=== PATIENT | male | born 1935 | race Caucasian/White ===

== ENCOUNTER 2020-06-27 12:51 | Outpatient (CLI) | payer MEDICARE, OTHER ==
--- NOTE | 2020-06-27 14:10 | CT ---
CTA Angio Abd Pelvis W WO Con History: Abdominal aortic aneurysm Comparison: Ultrasound of May 2020 Findings: CT angiogram of the abdomen and pelvis was performed after the intravenous ministration of contrast. 3-D rendering provided. Low-grade subpleural reticulation in the lung bases. No pericardial effusion. Large infrarenal abdominal aortic aneurysm with a transverse dimension up to 6 cm with a critical mishel gth of 12 cm. Aneurysmal dilatation of the left common iliac artery up to 2.5 cm. Aneurysmal dilatation of the right common iliac artery up to 2 cm. The celiac trunk is patent. 30-40% narrowing of the proximal superior mesenteric artery for length of 2 cm. Adequate peripheral vascular flow. The left femoral artery is occluded just after the takeoff to the deep femoral artery. Renal arteries are patent. The liver, spleen, pancreas are unremarkable. Mild bilateral adrenal hyper plasia. No evidence for bowel obstruction. Extensive diverticular disease sigmoid colon without active curren t inflammation. Small volume layering calcific debris within the urinary bladder. Enlarged prostate with multiple par enchymal calcifications. Appendix is visualized and is normal. Grade 1 L3 over L4 anterolisthesis due to degenerative facet ar throsis. L4 laminectomy change. Large disc osteophyte complex at L5/S1. Impression: 1. Large infrarenal abdominal aortic aneurysm as described. No evidence for dissection. The aneurysm is 60-70% peripherally thrombosed. 2. 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 3. 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
== END 2020-06-27 12:52 | disposition home or self-care (01) ==
LOC: CT 12:51
PROVIDERS: ATTEND Thoracic Surgery (Cardiothoracic Vascular Surgery)
DX: I71.4 Abdominal aortic aneurysm, without rupture (principal); I72.3 Aneurysm of iliac artery; I70.8 Atherosclerosis of other arteries
CPT/HCPCS: 74174; 82565

== ENCOUNTER 2020-07-15 10:30 | Inpatient (IN) | payer MEDICARE, OTHER ==
[2020-07-15 14:07] LABS: Mean Corpuscular HGB CONC 33.1 g/dL (32.0-36.0); Mean Corpuscular Hemoglobin 32.5 pg (27.0-31.0); Mean Platelet Volume 7.7 fL (7.4-10.4); Platelet Count 234 thou/uL (130-400); RBC Distribution Width 12.6 % (11.5-14.5); Red Blood Cell (RBC) Count 4.94 mill/uL (4.70-6.10); White Blood Cell (WBC) Count 7.9 thou/uL (4.8-10.8)
[2020-07-16 02:23] LABS: Anion Gap 18 mmol/L (10-20); BUN (Urea Nitrogen) 20 mg/dL (8.4-25.7); Calc. Creatinine Clearance 0 mL/min (70-130); Calcium 9.3 mg/dL (7.8-10.44); Carbon Dioxide 23 mmol/L (23-31); Chloride 104 mmol/L (98-107); Estimated GFR-MDRD 78; Glucose 88 mg/dL (83-110); Potassium 5.1 mmol/L (3.5-5.1); Sodium 140 mmol/L (136-145)
[2020-07-16 15:42] LABS: SARS-CoV-2 MS2 Positive; SARS-CoV-2 N Gene Negative; SARS-CoV-2 S Gene Negative; SARS-CoV-2 by NAA Not Detected (NotDetected); SARS-CoV-2 orf1ab Negative
[2020-07-19] MEDS ORDERED: Fentanyl 100 MCG/2 ML VIAL ONE ×3 (06:35→11:24)
[2020-07-19] MEDS ORDERED: Midazolam HCl 2 mg/2 ml Vial ONE (06:35)
[2020-07-19] MEDS ORDERED: Dexmedetomidine 200 MCG/2 ML VIAL ONE (06:36)
[2020-07-19] MEDS ORDERED: Vecuronium 10 MG VIAL ONE ×2 (06:36→09:06)
[2020-07-19] MEDS ORDERED: Midazolam HCl 5 mg/5 ml Vial ONE (06:36)
[2020-07-19] MEDS ORDERED: Heparin 10,000 UNITS/1 ML VIAL 30,000 UNITS in Sodium Chloride 0.9% 1,000 ML IVPB SCH (06:45)
[2020-07-19] MEDS ORDERED: Protamine Sulfate 50 MG/5 ML VIAL ONE (06:52)
[2020-07-19] MEDS ORDERED: Heparin 5,000 UNITS/ML VIAL ONE (06:52)
[2020-07-19] MEDS ORDERED: Nitroglycerin 50 MG/250 ML BOT 250 ML ONE (08:21)
[2020-07-19] MEDS ORDERED: PHENYLEPHRINE-NS 100 MCG/ML 10 ML SYRINGE ONE (09:06)
[2020-07-19] MEDS ORDERED: Ketorolac Tromethamine 30 MG/ML VIAL ONE (09:06)
[2020-07-19] MEDS ORDERED: Dexamethasone 20 MG/5 ML VIAL ONE (09:06)
[2020-07-19] MEDS ORDERED: Lidocaine 1% PF 5 ML VIAL ONE (09:06)
[2020-07-19] MEDS ORDERED: Labetalol HCl 100 MG/20 ML VIAL ONE (09:06)
[2020-07-19] MEDS ORDERED: Ondansetron PF 4 MG/2 ML Vial ONE (09:06)
[2020-07-19] MEDS ORDERED: PROPOFOL 200 MG/20 ML VIAL ONE (09:06)
[2020-07-19] MEDS ORDERED: Glycopyrrolate 0.2 MG/ML 5 ML SYRINGE ONE (09:06)
[2020-07-19] MEDS ORDERED: Heparin 10,000 UNITS/ 10 ML VIAL ONE (09:16)
[2020-07-19] MEDS ORDERED: Fentanyl 100 MCG/2 ML VIAL SLOW IVP PRN ×2 (10:30)
[2020-07-19] MEDS ORDERED: Norepinephrine 8 MG/0.9% NS 250 ML IVPB PRN (10:30)
[2020-07-19] MEDS ORDERED: Nitroglycerin 50 MG/250 ML BOT 250 ML IVPB PRN (10:30)
[2020-07-19] MEDS ORDERED: Ondansetron PF 4 MG/2 ML Vial IVP PRN ×2 (10:30→11:27)
[2020-07-19 10:45] VITALS: BMI 22.3
[2020-07-19] MEDS ORDERED: Ondansetron HCl/PF 4 MG/2 ML Vial IVP PRN (10:50)
[2020-07-19 11:13] LABS: Platelet Count 196 thou/uL (130-400)
[2020-07-19 11:27] LABS: Anion Gap 12 mmol/L (10-20); BUN (Urea Nitrogen) 16 mg/dL (8.4-25.7); Calc. Creatinine Clearance 63 mL/min (70-130); Calcium 7.7 mg/dL (7.8-10.44); Carbon Dioxide 22 mmol/L (23-31); Chloride 110 mmol/L (98-107); Estimated GFR-MDRD 80; Glucose 164 mg/dL (83-110); Potassium 3.9 mmol/L (3.5-5.1); Sodium 140 mmol/L (136-145)
[2020-07-19] MEDS ORDERED: diphenhydrAMINE 25 MG CAP PO PRN (11:27)
[2020-07-19] MEDS ORDERED: Naloxone HCl 0.4 mg/ml Vial IV PRN (11:27)
[2020-07-19] MEDS ORDERED: Zolpidem Tartrate 5 MG TAB PO PRN (11:27)
[2020-07-19] MEDS ORDERED: Promethazine HCl 25 MG/ML VIAL IM PRN (11:27)
[2020-07-19] MEDS ORDERED: fentaNYL Citrate/PF 2,000 MCG in Sodium Chloride 0.9% 60 ML IV PRN (11:27)
[2020-07-19] MEDS ORDERED: diphenhydrAMINE 50 MG/ML VIAL IVP PRN (11:27)
[2020-07-19] MEDS ORDERED: diphenhydrAMINE 50 MG/ML VIAL IM PRN (11:27)
[2020-07-19] MEDS ORDERED: Communication Order-Pharmacy FS SCH (11:30)
--- NOTE | 2020-07-19 11:30 | OP ---
DATE OF PROCEDURE: 07/19/2020 PREOPERATIVE DIAGNOSIS: Abdominal aortic aneurysm involving iliacs. PROCEDURE PERFORMED: Aorta to right distal common iliac artery and left external iliac artery with 20 x 10 Hemashield bifurcation graft. BROACH GRINDER: Jose. ESTIMATED BLOOD LOSS: 600 transfused and auto transfused 260. DESCRIPTION OF PROCEDURE: After adequate anesthesia had been obtained, the patient was prepped and draped. Midline incision was carried out and the bowel rotated to the right. Retroperitoneum was exposed. The patient was heparinized with 7500 units of heparin and ACT level was checked. Clamps were applied to the aorta just distal to the renal arteries as well as to both external and internal iliac arteries. The aneurysm was opened and lumbar vessels x3 were oversewn. The common iliac arteries were then incised with the right being incised down to the combined orifices of the internal and external iliac artery. On the left side, the common iliac artery was incised down to the orifices of the internal and external and the internal was then oversewn and the external mobilized. A 20 mm graft was then sewn proximally with a running 3-0 Prolene suture, following which, the right limb of the graft was anastomosed to the common iliac artery orifice just above the internal and external takeoffs. The graft was a slightly redundant, but not significant. The left side was then brought through the left common iliac artery bed and end-to-end anastomosis to the external iliac artery was carried out. Following this, flow was restored to both legs, the right having been restored earlier and then the left. Protamine was given to partially reverse the heparin, and after obtaining hemostasis, the aneurysm sac was closed over the main body of the graft and re-peritonealization was carried out right and left. The bowel was returned to the abdomen. Lap counts were correct and the fascia was closed with a double stranded running layer of PDS suture and then the skin was closed. The patient had good femoral pulses at the conclusion of the procedure. Job ID: [id number]
[2020-07-19] MEDS: CEFAZOLIN 2 GM in Premix Bag 1 BAG IVPB SCH ×2 (14:29→22:04)
[2020-07-19] MEDS: Lactated Ringer's 1,000 ML IV SCH ×2 (14:31→18:22)
[2020-07-20] MEDS: Lactated Ringer's 1,000 ML IV SCH ×3 (04:17→18:30)
[2020-07-20 04:38] LABS: #Lymphocytes 1.2 thou/uL (1.20-3.40); #Monocytes 1.4 thou/uL (0.11-0.59); #Neutrophils 11.9 thou/uL (1.40-6.50); %Basophils 0.1 % (0.0-1.0); %Eosinophils 0.1 % (0.0-10.0); %Monocytes 9.7 % (0.0-10.0); %Neutrophils 82.1 % (42.0-75.0); Hemoglobin 13.8 g/dL (14.0-18.0); Mean Corpuscular HGB CONC 33.8 g/dL (32.0-36.0); Mean Corpuscular Hemoglobin 33.2 pg (27.0-31.0); Mean Corpuscular Volume 98.1 fL (78.0-98.0); Mean Platelet Volume 7.2 fL (7.4-10.4); Platelet Count 193 thou/uL (130-400); RBC Distribution Width 12.6 % (11.5-14.5); Red Blood Cell (RBC) Count 4.17 mill/uL (4.70-6.10); White Blood Cell (WBC) Count 14.5 thou/uL (4.8-10.8)
[2020-07-20 04:55] LABS: Anion Gap 9 mmol/L (10-20); BUN (Urea Nitrogen) 21 mg/dL (8.4-25.7); Calc. Creatinine Clearance 65 mL/min (70-130); Calcium 7.7 mg/dL (7.8-10.44); Carbon Dioxide 25 mmol/L (23-31); Chloride 108 mmol/L (98-107); Estimated GFR-MDRD 83; Glucose 127 mg/dL (83-110); Potassium 4.2 mmol/L (3.5-5.1); Sodium 138 mmol/L (136-145)
[2020-07-20] MEDS: CEFAZOLIN 2 GM in Premix Bag 1 BAG IVPB SCH (06:11)
[2020-07-20] MEDS: Aspirin Chewable 81 MG TAB PO SCH (08:56)
[2020-07-20] MEDS: Ketorolac Tromethamine 30 MG/ML VIAL IVP SCH ×3 (11:11→23:42)
[2020-07-21] MEDS: Lactated Ringer's 1,000 ML IV SCH ×3 (02:57→13:28)
[2020-07-21] MEDS: Ketorolac Tromethamine 30 MG/ML VIAL IVP SCH ×3 (05:26→17:24)
[2020-07-21 05:43] LABS: #Eosinphils 0.1 thou/uL (0.0-0.7); #Monocytes 1.3 thou/uL (0.11-0.59); #Neutrophils 10.9 thou/uL (1.40-6.50); %Basophils 0.4 % (0.0-1.0); %Eosinophils 0.7 % (0.0-10.0); %Lymphocytes 7.5 % (21.0-51.0); %Monocytes 9.9 % (0.0-10.0); %Neutrophils 81.5 % (42.0-75.0); Hemoglobin 13.2 g/dL (14.0-18.0); Mean Corpuscular HGB CONC 33.2 g/dL (32.0-36.0); Mean Corpuscular Hemoglobin 32.9 pg (27.0-31.0); Mean Corpuscular Volume 98.9 fL (78.0-98.0); Mean Platelet Volume 7.4 fL (7.4-10.4); Platelet Count 170 thou/uL (130-400); RBC Distribution Width 12.7 % (11.5-14.5); Red Blood Cell (RBC) Count 4.02 mill/uL (4.70-6.10); White Blood Cell (WBC) Count 13.4 thou/uL (4.8-10.8)
[2020-07-21 06:00] LABS: Anion Gap 8 mmol/L (10-20); BUN (Urea Nitrogen) 21 mg/dL (8.4-25.7); Calc. Creatinine Clearance 69 mL/min (70-130); Calcium 7.8 mg/dL (7.8-10.44); Carbon Dioxide 27 mmol/L (23-31); Chloride 106 mmol/L (98-107); Estimated GFR-MDRD 87; Glucose 103 mg/dL (83-110); Potassium 4.2 mmol/L (3.5-5.1); Sodium 137 mmol/L (136-145)
[2020-07-21] MEDS: Aspirin Chewable 81 MG TAB PO SCH (09:31)
[2020-07-22] MEDS: Ketorolac Tromethamine 30 MG/ML VIAL IVP SCH ×2 (00:56→05:18)
[2020-07-22] MEDS: Aspirin 81 mg Enteric Coated Tablet PO SCH (08:48)
[2020-07-22] MEDS: Enoxaparin Sodium 30 MG/0.3 ML SYRINGE SC SCH (08:48)
[2020-07-22] MEDS: Aspirin Chewable 81 MG TAB PO SCH (08:48)
[2020-07-22] MEDS: Acetaminophen 325 MG TAB PO PRN (18:12)
[2020-07-22] MEDS: traMADol HCl 50 MG TAB PO PRN (18:12)
[2020-07-23] MEDS: traMADol HCl 50 MG TAB PO PRN ×2 (04:54→17:13)
[2020-07-23] MEDS: Acetaminophen 325 MG TAB PO PRN ×2 (04:55→17:13)
[2020-07-23] MEDS: Aspirin 81 mg Enteric Coated Tablet PO SCH (08:23)
[2020-07-23] MEDS: Enoxaparin Sodium 30 MG/0.3 ML SYRINGE SC SCH (08:23)
[2020-07-23] MEDS ORDERED: Polyethylene Glycol 3350 17 GM Packet PO SCH (17:45)
[2020-07-23] MEDS ORDERED: Furosemide 20 MG TAB PO SCH (17:45)
[2020-07-24] MEDS: Acetaminophen 325 MG TAB PO PRN (05:21)
[2020-07-24] MEDS ORDERED: Furosemide 20 MG TAB PO SCH (06:45)
[2020-07-24] MEDS: Aspirin 81 mg Enteric Coated Tablet PO SCH (08:07)
[2020-07-24] MEDS: Enoxaparin Sodium 30 MG/0.3 ML SYRINGE SC SCH (08:07)
[2020-07-24] MEDS ORDERED: Polyethylene Glycol 3350 17 GM Packet PO SCH (09:00)
[2020-07-24 14:50] VITALS: BP 178/70; TEMP 98.4
--- NOTE | 2020-07-24 15:27 | DIS ---
DATE OF ADMISSION: 07/19/2020 DATE OF DISCHARGE: 07/24/2020 HOSPITAL COURSE: Gentleman admitted five days ago for abdominal aortic aneurysm resection post bowel prep at home. His postoperative course was relatively unremarkable. Given his age, his return to functional status was relatively quick. He is ambulating independently and voiding well. He has had a small BM and passing flatus regularly but has not had a large BM. Oxygen saturations were on the low side on room air in the low 90s, but otherwise he has progressed nicely and will be discharged home to resume his [id number] medications including aspirin 81 a day. MiraLAX will be prescribed at home for the next week or so, and no other prescriptions have been written. Job ID: [id number]
== END 2020-07-24 14:55 | disposition home or self-care (01) | DRG 269 ==
LOC: SURG A 07-19 05:55 → CCU 07-19 14:02 → SURG A 07-20 10:43
PROVIDERS: ADMIT Thoracic Surgery (Cardiothoracic Vascular Surgery); ATTEND Thoracic Surgery (Cardiothoracic Vascular Surgery)
PROC: 04R00JZ Replacement of Abdominal Aorta with Synthetic Substitute, Open Approach (ICD-10-PCS; principal; 2020-07-19)
DX: I71.4 Abdominal aortic aneurysm, without rupture (principal); I72.3 Aneurysm of iliac artery; Z20.828 Contact with and (suspected) exposure to other viral communicable diseases; F03.90 Unspecified dementia, unspecified severity, without behavioral disturbance, psychotic disturbance, mood disturbance, and anxiety; Z87.891 Personal history of nicotine dependence
CPT/HCPCS: 36415; 80048; 85014; 85018; 85025; 85027; 85049; 86850; 86900; 86901; 87635; J0690; J1100; J1642; J1644; J1650; J1885; J2250; J2405; J2704; J2720; J3010; J3490; J7050; U0003

== ENCOUNTER 2022-02-27 13:02 | Outpatient (CLI) | payer MEDICARE | END 2022-02-27 13:03 | disposition home or self-care (01) | LOC: SCSMRI 13:02 | PROVIDERS: ATTEND Student in an Organized Health Care Education/Training Program | DX: H90.5 Unspecified sensorineural hearing loss (principal); I25.2 Old myocardial infarction; I67.82 Cerebral ischemia | CPT/HCPCS: 70553; 82565 ==